=== PATIENT | female | born 1985 | race Caucasian/White ===

== ENCOUNTER 2016-04-17 21:00 | Emergency (ER) | payer OTHER ==
[~2016-04-17] VITALS: Ht 157.5 cm; Wt 59.0 kg
[2016-04-17] MEDS ORDERED: CLARITIN 10MG T10 MG PO (21:12)
[2016-04-17] MEDS ORDERED: LEVOTHYROXIN0.088 MG PO (21:12)
[2016-04-17 21:22] LABS: URINE BILIRUBIN - DIPSTICK NEGATIVE (NEG); URINE BLOOD 2+ (NEG)
[2016-04-17 21:27] LABS: URINE SQUAMOUS CELLS OCC #/hpf (0-5)
--- NOTE | 2016-04-17 21:28 | Emergency Room Report ---
History of Present Illness Time Seen by [id number] Presenting Problem in Triage Pt arrived:Walked Presenting Problem:PT ADVISES SHE IS APPROX. 7 WEEKS AND STARTED BLEEDING WITH ABD CRAMPING THIS MORNING. 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 N Clinical Suspician of Infection? N Mental Status: 1 - Regular (Normal Baseline) Sepsis Risk:Low Sepsis Risk Have you (or family members/close friends) recently traveled outside the [place]? N If Yes, where/when: Have you had exposure to infectious disease within the past month? N TB? Other? Specify: Source patient Exam Limitations no limitations Comment pt is early wit some mild vag bleeding with crampy pain and had recent prev miscarriage [id number] Cardiac Chest Pain Chest pain indicative of cardiac No Timing/Duration this evening Severity moderate ALLERGIES Coded Allergies: Sulfa (Sulfonamide Antibiotics) (Mild, 04/17/16) cefaclor (From CECLOR) (Mild, 04/17/16) Home Medications Reported Medications Levothyroxine Sodium (Levothyroxine 0.088MG) 0.088 MG PO DAILY Loratadine (Claritin 10MG) 10 MG PO DAILY History Medical History General CAD? No Angina: No [place]: No Hypertension? No Hyperlipidemia? No CHF? No DVT? No PE? No COPD? No Asthma? No Anemia? No GERD? No Gastric ulcers? No GI Bleed? No Hernia? No Thyroid Problems? Yes Hypothyroidism? Yes CVA? No Seizures? No Diabetes? No Renal Insuffiency? No End Stage Renal Disease? No UTI? No Stones? No BPH? No GB Disease: No Nephritic Syndrome? No Asplenia? No Hepatitis? No Sickle Cell Disease? No Arthritis? No Migraines? No Cataracts? No Glaucoma? No MRSA? No HIV? No TB? No Anxiety? No Depression? No Cancer? No More? 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 Respiratory denies cough, denies shortness of breath, denies wheezing Cardiovascular denies chest pain, denies syncope Gastrointestinal denies abdominal pain, denies diarrhea, denies vomiting Genitourinary see HPI, abnormal vaginal bleeding. denies: discharge, vaginal discharge, dysuria, frequency, hesitancy, hematuria. Musculoskeletal denies back pain, denies joint pain, denies joint swelling, denies neck pain Skin denies rash Psychiatric/Neurological denies headache, denies seizure Physical Exam Vital Signs Vital Signs Date Time Temp Pulse Resp B/P Pulse O2 O2 Flow FiO2 Ox Delivery Rate 04/17 2104 98.5 102 16 137/95 99 - WBC >12,000 or <4,000 or 10% bands? 2 or more SIRS Criteria Met? B/P:137/95 MAP:109 Creatinine >2.0? UA output<0.5ml/kg/hr for 2 hrs? Platelet count >100,000? Lactate >2.0mmol/1? INR >1.2 or PTT > than 60 sec? Evidence of Organ Dysfunction? Provider documented clinical suspician of infection? N Sepsis Criteria Count: 1 Sepsis Risk: Low Sepsis Risk General Appearance no apparent distress Eye Exam - bilateral eye PERRL, bilateral eye EOMI Ear, Nose, Throat normal ENT inspection Neck supple Respiratory Status No: respiratory distress. 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 No Results/Orders Laboratory Tests 04/17/162124: Sodium 138, Potassium 3.5, Chloride 102, Carbon Dioxide 27, BUN 11, Creatinine 0.7, Estimated Creat Clear 110, Estimated GFR (MDRD) 99, Glucose 100, Calcium 8.8, Total Bilirubin 0.3, AST 10 L, ALT 17, Alkaline Phosphatase 63, Total Protein 7.7, Albumin 3.9, Globulin 3.8 H, Albumin/Globulin Ratio 1.0 L, Beta HCG, Quant 1792.6, WBC 8.6, RBC 4.43, Hgb 14.2, Hct 37.0, MCV 83.6, RDW 12.6, Plt Count 253, MPV 6.6 L, Gran % 63.9, Gran # 5.5, Lymphocytes % 26.4, Monocytes % 5.8, Eosinophils % 3.4, Basophils % 0.4, Lymphocytes # 2.3, Monocytes # 0.5, Eosinophils # 0.3, Basophils # 0.0, PUBS MCHC 38.5 H, MCH 32.2 H 04/17/162104: Urine Color YELLOW, Urine Appearance CLEAR, Urine pH 7.0, Ur Specific [place] <= 1.005, Urine Protein NEGATIVE, Urine Ketones NEGATIVE, Urine Blood 2+ H, Urine Nitrate NEGATIVE, Urine Bilirubin NEGATIVE, Urine Urobilinogen 0.2, Ur Leukocyte Esterase NEGATIVE, Urine RBC OCC, Urine WBC NONE, Ur Squamous Epith Cells OCC, Urine Bacteria NONE, Urine Glucose NEGATIVE Orders Procedure Date/time Status US TRANSVAGINAL PREG 04/17 2125 Active URINALYSIS/COMPLETE 04/17 2103 Complete URINE 04/17 2103 Complete CBC WITH AUTO DIFF 04/17 2103 Complete CHEM 12 PROFILE 04/17 2103 Complete BETA-HCG, QUANT 04/17 2103 Complete XRAY/CT/US XRAY/CT/US Ultrasound pelvis US Interpretation by discussed w/radiologist US results iup/earky miscarriage Departure Departure Time of Disposition 2234 Disposition DC Home or Self Care(routine) Clinical Impression Primary Impression: Threatened miscarriage in early Condition STABLE Patient Instructions DI for Miscarriage Additional Instructions please call pcp/ob in am for close follow up Discharge Counseling Counseled pt/family regarding diagnosis, test results, follow up needs ED Critical Care Critical Care No at [phone]
--- NOTE | 2016-04-17 21:28 | Emergency Room Report ---
History of Present Illness Time Seen by [id number] Presenting Problem in Triage Pt arrived:Walked Presenting Problem:PT ADVISES SHE IS APPROX. 7 WEEKS AND STARTED BLEEDING WITH ABD CRAMPING THIS MORNING. 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 N Clinical Suspician of Infection? N Mental Status: 1 - Regular (Normal Baseline) Sepsis Risk:Low Sepsis Risk Have you (or family members/close friends) recently traveled outside the [place]? N If Yes, where/when: Have you had exposure to infectious disease within the past month? N TB? Other? Specify: Source patient Exam Limitations no limitations Comment pt is early wit some mild vag bleeding with crampy pain and had recent prev miscarriage [id number] Cardiac Chest Pain Chest pain indicative of cardiac No Timing/Duration this evening Severity moderate ALLERGIES Coded Allergies: Sulfa (Sulfonamide Antibiotics) (Mild, 04/17/16) cefaclor (From CECLOR) (Mild, 04/17/16) Home Medications Reported Medications Levothyroxine Sodium (Levothyroxine 0.088MG) 0.088 MG PO DAILY Loratadine (Claritin 10MG) 10 MG PO DAILY History Medical History General CAD? No Angina: No [place]: No Hypertension? No Hyperlipidemia? No CHF? No DVT? No PE? No COPD? No Asthma? No Anemia? No GERD? No Gastric ulcers? No GI Bleed? No Hernia? No Thyroid Problems? Yes Hypothyroidism? Yes CVA? No Seizures? No Diabetes? No Renal Insuffiency? No End Stage Renal Disease? No UTI? No Stones? No BPH? No GB Disease: No Nephritic Syndrome? No Asplenia? No Hepatitis? No Sickle Cell Disease? No Arthritis? No Migraines? No Cataracts? No Glaucoma? No MRSA? No HIV? No TB? No Anxiety? No Depression? No Cancer? No More? 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 Social History Smoking Hx Smoker: Never Smoker Tobacco: No Alcohol Alcohol: No Drugs none Review of Systems All Other Systems Reviewed and Negative Constitutional denies fever Eyes denies drainage ENT denies: ear discharge, epistaxis, throat pain. Respiratory denies cough, denies shortness of breath, denies wheezing Cardiovascular denies chest pain, denies syncope Gastrointestinal denies abdominal pain, denies diarrhea, denies vomiting Genitourinary see HPI, abnormal vaginal bleeding. denies: discharge, vaginal discharge, dysuria, frequency, hesitancy, hematuria. Musculoskeletal denies back pain, denies joint pain, denies joint swelling, denies neck pain Skin denies rash Psychiatric/Neurological denies headache, denies seizure Physical Exam Vital Signs Vital Signs Date Time Temp Pulse Resp B/P Pulse O2 O2 Flow FiO2 Ox Delivery Rate 04/17 2104 98.5 102 16 137/95 99 - WBC >12,000 or <4,000 or 10% bands? 2 or more SIRS Criteria Met? B/P:137/95 MAP:109 Creatinine >2.0? UA output<0.5ml/kg/hr for 2 hrs? Platelet count >100,000? Lactate >2.0mmol/1? INR >1.2 or PTT > than 60 sec? Evidence of Organ Dysfunction? Provider documented clinical suspician of infection? N Sepsis Criteria Count: 1 Sepsis Risk: Low Sepsis Risk General Appearance no apparent distress Eye Exam - bilateral eye PERRL, bilateral eye EOMI Ear, Nose, Throat normal ENT inspection Neck supple Respiratory Status No: respiratory distress. 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 No Results/Orders Laboratory Tests 04/17/162124: Sodium 138, Potassium 3.5, Chloride 102, Carbon Dioxide 27, BUN 11, Creatinine 0.7, Estimated Creat Clear 110, Estimated GFR (MDRD) 99, Glucose 100, Calcium 8.8, Total Bilirubin 0.3, AST 10 L, ALT 17, Alkaline Phosphatase 63, Total Protein 7.7, Albumin 3.9, Globulin 3.8 H, Albumin/Globulin Ratio 1.0 L, Beta HCG, Quant 1792.6, WBC 8.6, RBC 4.43, Hgb 14.2, Hct 37.0, MCV 83.6, RDW 12.6, Plt Count 253, MPV 6.6 L, Gran % 63.9, Gran # 5.5, Lymphocytes % 26.4, Monocytes % 5.8, Eosinophils % 3.4, Basophils % 0.4, Lymphocytes # 2.3, Monocytes # 0.5, Eosinophils # 0.3, Basophils # 0.0, PUBS MCHC 38.5 H, MCH 32.2 H 04/17/162104: Urine Color YELLOW, Urine Appearance CLEAR, Urine pH 7.0, Ur Specific [place] <= 1.005, Urine Protein NEGATIVE, Urine Ketones NEGATIVE, Urine Blood 2+ H, Urine Nitrate NEGATIVE, Urine Bilirubin NEGATIVE, Urine Urobilinogen 0.2, Ur Leukocyte Esterase NEGATIVE, Urine RBC OCC, Urine WBC NONE, Ur Squamous Epith Cells OCC, Urine Bacteria NONE, Urine Glucose NEGATIVE Orders Procedure Date/time Status US TRANSVAGINAL PREG 04/17 2125 Active URINALYSIS/COMPLETE 04/17 2103 Complete URINE 04/17 2103 Complete CBC WITH AUTO DIFF 04/17 2103 Complete CHEM 12 PROFILE 04/17 2103 Complete BETA-HCG, QUANT 04/17 2103 Complete XRAY/CT/US XRAY/CT/US Ultrasound pelvis US Interpretation by discussed w/radiologist US results iup/earky miscarriage Departure Departure Time of Disposition 2234 Disposition DC Home or Self Care(routine) Clinical Impression Primary Impression: Threatened miscarriage in early Condition STABLE Patient Instructions DI for Miscarriage Additional Instructions please call pcp/ob in am for close follow up Discharge Counseling Counseled pt/family regarding diagnosis, test results, follow up needs ED Critical Care Critical Care No at 2235
[2016-04-17 21:46] LABS: HEMOGLOBIN 14.2 g/dL (12.2-16.2); LYMPH # 2.3 K/mm3 (0.7-4.5); LYMPH % 26.4 % (10-50.0)
[2016-04-17 22:44] VITALS: BP 125/89
--- NOTE | 2016-04-18 08:54 | RADIOLOGY REPORT PS360 ---
US TRANSVAGINAL PREG HISTORY: 7 WEEKS WITH BLEEDING AND CRAMPING ORDERING PHYSICIAN: Bonita Espitia MD PATIENT AGE: 30 years COMPARISON: None FINDINGS: There is an intrauterine gestational sac present. A yolk sac is noted and measured 0.19 cm. A pole was not identified. heart tones are not evident. There is a small area of decreased echogenicity is present along the lower uterine segment may be due to small subchorionic hemorrhage. It did appear that the yolk sac was moving within the endometrial canal. The adnexa are unremarkable. IMPRESSION: 1. Intrauterine gestational sac with a yolk sac. No heart tones are evident. The gestational sac did appear to move within endometrial canal and the patient did have some bleeding during the exam. The findings are consistent with an impending spontaneous or incomplete . Follow-up recommended
== END 2016-04-17 22:44 | disposition home or self-care (01) ==
LOC: ER 21:00
PROVIDERS: Emergency Medicine
DX: O20.0 Threatened abortion (principal); Z3A.01 Less than 8 weeks gestation of pregnancy